=== PATIENT | male | born 1940 | race Caucasian/White ===

== ENCOUNTER 2016-06-22 13:18 | Inpatient (IN) | payer MEDICARE, BC ==
[2016-06-22 13:47] LABS: Hematocrit 31 % (42-52); Hemoglobin 9.8 g/dl (14.0-18.0); Mean Corpuscular HGB Conc 32 g/dl (31-36); Mean Corpuscular Hemoglobin 26 pg (27-31); Mean Corpuscular Volume 82 fL (80-94); Mean Platelet Volume 8 um3 (7.4-10.4); Red Blood Count 3.73 10^6/ul (4.0-5.4); Red Cell Distribution Width 24 % (10.5-15); White Blood Count 8.6 10^3/ul (3.5-10.8)
[2016-06-22 13:49] LABS: Comments Flag Yes
[2016-06-22 13:50] LABS: Add Diff/Slide Review? Slide Review Added
[2016-06-22 14:03] LABS: Albumin 3.2 g/dL (3.2-5.2); BUN/Creatinine Ratio 20.8 (8-20); Calcium 8.7 mg/dL (8.6-10.3); EGFR African American 54.6 (>60); EGFR Non-African American 42.4 (>60); Globulin 3.4 g/dL (2-4); Potassium 4.4 mmol/L (3.5-5.0); Total Bilirubin 0.4 mg/dL (0.2-1.0); Total Protein 6.6 g/dL (6.4-8.9)
[2016-06-22 14:04] LABS: Troponin I 0.03 ng/mL (<0.04)
--- NOTE | 2016-06-22 14:11 | RAD ---
Indication: Weakness. Single frontal view of the chest performed at 1345 hours was reviewed. Comparison is made with previous exam dated January 13, 2016. Cardiomegaly is noted. Patient is status post tracer thoracotomy. Lung downey appear hyperinflated. IMPRESSION: POSTOPERATIVE CHANGES WITH CARDIOMEGALY. NO DEFINITE PNEUMONIA IS IDENTIFIED.
--- NOTE | 2016-06-22 14:18 | RAD ---
HISTORY: New right-sided weakness COMPARISONS: January 13, 2016 TECHNIQUE: Multiple contiguous axial CT scans were obtained of the head without intravenous contrast. FINDINGS: HEMORRHAGE/INFARCT: There is a left frontoparietal subdural hematoma further described below. There is no parenchymal hemorrhage. There is no acute infarct. MASSES/SHIFT: There is 0.9 cm of subfalcine shift to the right. The basal cisterns are preserved. There is no parenchymal mass. EXTRA-AXIAL SPACES: There is a mixed attenuation (parietal subdural hematoma, consistent with subacute subdural hematoma. This measures up to 3.6 cm in depth. There is associated subfalcine shift to the right of 0.9 cm. SULCI AND VENTRICLES: The sulci and ventricles are normal in size and position for the patient's stated age. CEREBRUM: There is hypoattenuation of the periventricular and subcortical white matter. BRAINSTEM: There are no focal parenchymal abnormalities. CEREBELLUM: There are no focal parenchymal abnormalities. VESSELS: There is calcification of the cavernous segments of the internal carotid arteries bilaterally and of the distal vertebral arteries bilaterally. PARANASAL SINUSES: The paranasal sinuses are clear. ORBITS: The orbits are unremarkable. BONES AND SOFT TISSUE: No bone or soft tissue abnormalities are noted. OTHER: None IMPRESSION: SUBACUTE LEFT FRONTOPARIETAL SUBDURAL HEMATOMA MEASURING UP TO 3.6 CM IN DEPTH WITH A 0.9 CM OF SUBFALCINE SHIFT TO THE RIGHT. PRELIMINARY FINDINGS WERE DISCUSSED WITH DR. ROBLEDO IN THE EMERGENCY DEPARTMENT AT APPROXIMATELY 2:14 PM ON JUNE 22, 2016.
--- NOTE | 2016-06-22 15:38 | ED ---
Isaac Ivory Alok, scribed for Coreen Cross MD on 06/22/16 at 1359 . Neurological HPI - HPI Summary HPI Summary: 76 y/o male with dementia presents to the ED following a fall and right sided weakness. Pt was found on the floor 5 day ago after which he was checked for injury with no abnormal symptoms. Then 3 days ago, right sided unilateral weakness was noticed by his spouse. Pt's spouse remarks that pt mental state was worse than baseline, speaking softer with less attention. PMHx includes dementia, DM, HTN and HLD. - History of Current Complaint Chief Complaint: EDWeakness Stated Complaint: RT SIDE WEAKNESS Time Seen by Provider: 06/22/16 13:34 Hx Obtained From: Family/Retail Service Lead Merchandiser - Spouse Hx From Patient Unobtainable Due To: Dementia Onset/Duration: Gradual Onset, Started days ago Timing: Constant Onset Severity: Moderate Current Severity: Moderate Neurological Deficit Location: RUE, RLE Pain Intensity: 0 Character: Weak Aggravating: Nothing Alleviating: Nothing Associated Signs and Symptoms: Positive: AMS - Slightly worse than baseline Related Hx: Trauma - Fall 5 day ago - Allergy/Home Medications Allergies/Adverse Reactions: Allergies Allergy/AdvReac Type Severity Reaction Status Date / Time Penicillins Allergy Unknown Verified 04/21/15 01:21 Reaction Details Home Medications: Home Medications Acetaminophen SUPP* [Tylenol Supp*] 325 mg [place] Q4H PRN 06/22/16 [History Confirmed 06/22/16] Ascorbic Acid TAB* [Vitamin C TAB*] 500 mg PO DAILY 06/22/16 [History Confirmed 06/22/16] Cholecalciferol [Vitamin D3 Super Strength] 2,000 unit PO DAILY 06/22/16 [ History Confirmed 06/22/16] Ferrous Sulfate TAB* 325 mg PO DAILY 06/22/16 [History Confirmed 06/22/16] Insulin GLARGINE(*) [Lantus(*)] 56 units SUBCUT QAM 06/22/16 [History Confirmed 06/22/16] Insulin LISPRO* [HumaLOG*] 4 unit SUBCUT BID WITH MEALS 06/22/16 [History Confirmed 06/22/16] Insulin LISPRO* [HumaLOG*] 6 unit SUBCUT DAILY WITH MEAL 06/22/16 [History Confirmed 06/22/16] Magnesium Oxide TAB* [MagOx 400 TAB*] 400 mg PO DAILY 06/22/16 [History Confirmed 06/22/16] Omeprazole CAP* [Prilosec CAP* 20 MG] 40 mg PO DAILY 06/22/16 [History Confirmed 06/22/16] Ondansetron TAB* [Zofran 4 MG Tab*] 4 mg PO TID PRN 06/22/16 [History Confirmed 06/22/16] PMH/Surg Hx/FS Hx/Imm Hx Endocrine/Hematology History: Reports: Hx Diabetes Cardiovascular History: Reports: Hx Coronary Artery Disease GI History: Reports: Hx Gastroesophageal Reflux Disease Neurological History: Reports: Hx Dementia Infectious Disease History: No Infectious Disease History: Denies: Traveled Outside the [place] in Last 30 Days - Family History Known Family History: Positive: Unknown - Not obtained, since patient is a poor historian and hx of dementia, Other - reviewed and non contributory - Social History Alcohol Use: None Substance Use Type: Reports: None Smoking Status (MU): Never Smoked Tobacco Review of Systems Positive: Weakness - Right sided unilateral All Other Systems Reviewed And Are Negative: Yes Physical Exam Triage Information Reviewed: Yes Vital Signs On Initial Exam: Initial Vitals Pulse Pulse Ox 77 99 06/22/16 13:27 06/22/16 13:27 Vital Signs Reviewed: Yes Appearance: Positive: Well-Appearing, No Pain Distress Skin: Positive: Warm, Skin Color Reflects Adequate Perfusion, Dry Eyes: Positive: HECTOR, Other: - Pupils 2 mm ENT: Positive: Pharynx normal, TMs normal Neck: Positive: Supple, Nontender Respiratory/Lung Sounds: Positive: Clear to Auscultation. Negative: Rales, Rhonchi, Wheezes Cardiovascular: Positive: RRR. Negative: Murmur, Rub, Other - Gallops Abdomen Description: Positive: Nontender, Soft Bowel Sounds: Positive: Present Musculoskeletal: Positive: Other - Right leg and Right arm only responsive to painful stimuli Psychiatric: Positive: Affect/Mood Appropriate Diagnostics - Vital Signs Vital Signs Temp Pulse Resp BP Pulse Ox 06/22/16 13:28 99.4 F 78 16 173/70 99 06/22/16 13:27 77 99 - Laboratory Lab Results: Lab Results 06/22/16 Range/Units 13:40 WBC 8.6 (3.5-10.8) 10^3/ul RBC 3.73 L (4.0-5.4) 10^6/ul Hgb 9.8 L (14.0-18.0) g/dl Hct 31 L (42-52) % MCV 82 (80-94) fL MCH 26 L (27-31) pg MCHC 32 (31-36) g/dl RDW 24 H (10.5-15) % Plt Count 265 (150-450) 10^3/ul MPV 8 (7.4-10.4) um3 Neut % (Auto) 84.0 H (38-83) % Lymph % (Auto) 6.1 L (25-47) % [place] % (Auto) 8.7 (1-9) % Eos % (Auto) 0.4 (0-6) % Baso % (Auto) 0.8 (0-2) % Absolute Neuts (auto) 7.2 (1.5-7.7) 10^3/ul Absolute Lymphs (auto) 0.5 L (1.0-4.8) 10^3/ul Absolute Monos (auto) 0.7 (0-0.8) 10^3/ul Absolute Eos (auto) 0 (0-0.6) 10^3/ul Absolute Basos (auto) 0.1 (0-0.2) 10^3/ul Absolute Nucleated RBC 0 10^3/ul Nucleated RBC % 0 Result Diagrams: 06/22/16 13:40 06/22/16 13:40 Lab Statement: Any lab studies that have been ordered have been reviewed, and results considered in the medical decision making process. - Radiology CXR Xray Interpretation: Positive (See Comments) - IMPRESSION: POSTOPERATIVE CHANGES WITH CARDIOMEGALY. NO DEFINITE PNEUMONIA IS IDENTIFIED. Radiology Interpretation Completed By: Radiologist - CT Brain CT CT Interpretation: Positive (See Comments) - IMPRESSION: SUBACUTE LEFT FRONTOPARIETAL SUBDURAL HEMATOMA MEASURING UP TO 3.6 CM IN DEPTH WITH A 0.9 CM OF SUBFALCINE SHIFT TO THE RIGHT. PRELIMINARY FINDINGS WERE DISCUSSED WITH DR. CROSS IN THE EMERGENCY DEPARTMENT AT APPROXIMATELY 2:14 PM ON JUNE 22, 2016. CT Interpretation Completed By: Radiologist - EKG 1342 Cardiac Rate: NL EKG Rhythm: Sinus Rhythm - 75 bpm EKG Interpretation: Non-specific T-wave changes. Inferior Q's Course/Dx - Course Course Of Treatment: pt admitted to neurosurgery after discussion with PA - Diagnoses Provider Diagnoses: Subdural hematoma - Physician Notifications Discussed Care of Patient With: Dr. Dahl @ 0090 Discharge - Discharge Plan Condition: Guarded Disposition: ADMITTED TO [facility] documentation as recorded by the Isaac woodard Alok accurately reflects the service I personally performed and the decisions made by me, Coreen Cross MD.
--- NOTE | 2016-06-22 16:14 | HP ---
H&P (Free Text) History and Physical: History and Physical Date: 06/22/16 HPI: This is a 76 year old male with past medical history significant for diabetes, CAD and dementia who presented to the [facility] ED this afternoon from his place of residence at [facility] with complaint of right sided upper and lower extremity weakness. His gives all of the history as he is unable to communicate history secondary to dementia and current mentation. She reports that he fell about 4 days ago at [facility]. He was check at the time of fall for injuries and was reported to not have sustained any injuries including to the head. He was speaking clearly and at baseline on the day of fall per the . She again went to visit him today and reports that he was slouched to the right side in the chair and was unable to move his right side. She suspected that this was not normal and requested that he be evaluated at the emergency room. He was taken to [facility] ER, CT brain was obtained and he was found to have a large left sided subacute subdural hematoma. The patient's also reports that his speech is much softer than usual and is unable to answer questions as well as baseline. The patient denies headache, chest pain, pain in the upper extremities, nausea and difficulty breathing. He is able to follow commands. Allergies: 1. Penicillins Home medications: 1. Aspirin Low Dose CHEW TAB* [Aspirin Low Dose TAB*] 81 mg PO DAILY 05/31/14 [ History Confirmed 06/22/16] 2. Acetaminophen [Acetaminophen Extra Stren] 1,000 mg PO Q8HR PRN 08/15/15 [ History Confirmed 06/22/16] 3. Acetaminophen SUPP* [Tylenol Supp*] 325 mg [place] Q4H PRN 06/22/16 [History Confirmed 06/22/16] 4. Ascorbic Acid TAB* [Vitamin C TAB*] 500 mg PO DAILY 06/22/16 [History Confirmed 06/22/16] 5. Cholecalciferol [Vitamin D3 Super Strength] 2,000 unit PO DAILY 06/22/16 [ History Confirmed 06/22/16] 6. Ferrous Sulfate TAB* 325 mg PO DAILY 06/22/16 [History Confirmed 06/22/16] 7. Insulin GLARGINE(*) [Lantus(*)] 56 units SUBCUT QAM 06/22/16 [History Confirmed 06/22/16] 8. Insulin LISPRO* [HumaLOG*] 4 unit SUBCUT BID WITH MEALS 06/22/16 [History Confirmed 06/22/16] 9. Insulin LISPRO* [HumaLOG*] 6 unit SUBCUT DAILY WITH MEAL 06/22/16 [History Confirmed 06/22/16] 10. Magnesium Oxide TAB* [MagOx 400 TAB*] 400 mg PO DAILY 06/22/16 [History Confirmed 06/22/16] 11. Omeprazole CAP* [Prilosec CAP* 20 MG] 40 mg PO DAILY 06/22/16 [History Confirmed 06/22/16] 12. Ondansetron TAB* [Zofran 4 MG Tab*] 4 mg PO TID PRN 06/22/16 [History Confirmed 06/22/16] Social history: The patient lives at [facility]. No alcohol or tobacco use. ROS: Pertinent findings stated in HPI, all others negative. Physical Exam: Vital Signs Temp Pulse Resp BP Pulse Ox 99.4 F 79 11 173/70 99 06/22/16 13:28 06/22/16 14:05 06/22/16 14:05 06/22/16 13:30 06/22/16 14:05 General: Laying in bed. Able to follow commands. Not able to verbalize answers well. HEENT: Head is normocephalic and atraumatic. Sclerae anicteric. Pupils 2mm and reactive. Gross hearing intact. Dry mucous membranes. Neck: Supple, nontender and without adenopathy. CV: Pedal and radial pulses palpable and equal. Lungs: Clear to auscultation. Breathing is nonlabored. Abdomen: Soft, nontender and nondistended. NABS. Neuro: Right upper extremity weakness 2/5. Right lower extremity weakness 3/5. Imaging: CT of the brain shows left subacute subdural hematoma. Assessment and Plan: This patient presents with significant right sided weakness with subacute SDH on CT after a recent fall. Recent decline in speech and strength in the presence of large SDH indicates need for urgent александр hole evacuation of SDH.
[2016-06-22] MEDS ORDERED: fentaNYL* 50 MCG/ML 5 ML VIAL (250 MCG VIAL) ONE (16:29)
[2016-06-22] MEDS ORDERED: Rocuronium* 10 MG/ML VIAL ONE ×2 (16:29→16:34)
[2016-06-22] MEDS ORDERED: Thrombin 5,000 UNITS* 1 APPLIC KIT - topical use - TOPICAL ONE (16:29)
[2016-06-22] MEDS ORDERED: Ondansetron INJ* 2 MG/ML VIAL ONE (16:30)
[2016-06-22] MEDS ORDERED: Dexamethasone IV* 4 MG/ML 1 ML (4 MG) ONE ×2 (16:30→16:57)
[2016-06-22] MEDS ORDERED: Propofol* 10 MG/ML 20 ML BTL IV PUSH ONE (16:30)
[2016-06-22] MEDS ORDERED: Lidocain 1% EPI 1:100,000 * 30 ML MDV ONE (16:30)
[2016-06-22] MEDS ORDERED: EPHEDrine (Pressors)* 50 MG/ML VIAL ONE (16:33)
[2016-06-22] MEDS ORDERED: Lidocaine 2% PF* 5 ML VIAL ONE (16:35)
[2016-06-22] MEDS ORDERED: Clindamycin 900 MG IVPREMIX(* 900 MG/50 ML SDV IV ONE (16:45)
[2016-06-22] MEDS ORDERED: Insulin REGULAR(*) 1 UNITS UNIT ONE (16:52)
[2016-06-22] MEDS ORDERED: Metoclopramide IV* 5 MG/ML 2 ML VIAL IV SLOW PU ONE (16:54)
[2016-06-22] MEDS ORDERED: Buffered Lidocaine 1% SYRIN* 3 ML/SYR SYRINGE INTRADERM ONE (16:54)
[2016-06-22] MEDS ORDERED: Sodium Citrate/Citric Acid* 15 ML UDC PO ONE (16:54)
[2016-06-22] MEDS ORDERED: Metoclopramide IV* 5 MG/ML 2 ML VIAL ONE (16:54)
[2016-06-22] MEDS ORDERED: Famotidine IV* 10 MG/ML 2 ML (20 mg) IV ONE (16:54)
[2016-06-22] MEDS ORDERED: Dexamethasone IV* 4 MG/ML 1 ML (4 MG) IV SLOW PU ONE (16:54)
[2016-06-22] MEDS ORDERED: Insulin REGULAR(*) 1 UNITS UNIT IV PUSH ONE (16:56)
[2016-06-22] MEDS ORDERED: Famotidine IV* 10 MG/ML 2 ML (20 mg) ONE (16:57)
[2016-06-22] MEDS ORDERED: Sodium Citrate/Citric Acid* 15 ML UDC ONE (16:57)
[2016-06-22] MEDS ORDERED: Succinylcholine* 20 MG/ML 10 ML VIAL ONE (17:02)
[2016-06-22] MEDS ORDERED: Atracurium* 10 MG/ML 10 ML VIAL ONE (17:02)
[2016-06-22] MEDS ORDERED: Phenylephrine IV* 40 MCG/ML 10 ML SYRINGE ONE (17:54)
[2016-06-22] MEDS ORDERED: Acetaminophen TAB* 325 MG PO PRN (17:57)
[2016-06-22] MEDS ORDERED: Ondansetron INJ* 2 MG/ML VIAL IV PRN (17:57)
[2016-06-22] MEDS ORDERED: Labetalol IV* 5 MG/ML 20 ML VIAL IV PUSH PRN (18:05)
[2016-06-22] MEDS ORDERED: Morphine INJ* 2 MG/ML 1 ML SYRINGE IV PRN (18:19)
[2016-06-22] MEDS ORDERED: Edrophonium Chloride* 10 MG/ML 15 ML VIAL ONE (18:24)
[2016-06-22] MEDS ORDERED: Glycopyrrolate IV* 0.2 MG/ML 1 ML VIAL ONE (18:24)
[2016-06-22] MEDS ORDERED: Phenytoin IV(*) 1,000 MG in NS 0.9% 250 ML* 250 ML IV ONE (19:00)
[2016-06-22] MEDS: Insulin GLARGINE(*) 1 UNITS UNIT SUBCUT SCH (21:41)
[2016-06-22] MEDS: Insulin LISPRO* 1 UNITS UNIT SUBCUT SCH (21:41)
--- NOTE | 2016-06-23 01:27 | CONS ---
CONSULTATION REPORT: DATE OF CONSULTATION: 06/22/16 - ROOM #ICU-09 PRIMARY CARE PROVIDER: Dr. Muñoz. SERVICE REQUESTING CONSULTATION: Neurosurgery. REASON FOR CONSULTATION: Uncontrolled type 2 diabetes. HISTORY OF PRESENT ILLNESS AND HOSPITAL COURSE: This is a 76-year-old man with past medical history significant for insulin dependent type 2 diabetes mellitus , CAD with single vessel bypass 2011, advanced dementia, who has been a resident for [facility] for the last year. He had a fall approximately 4 or 5 days prior to presentation. slightly slurred speech and be slumping towards right side with right upper and lower extremity weakness. He presented to [facility] where brain CAT scan was notable for subacute left frontoparietal subdural hematoma with 0.9 cm subfalcine shift to the right. The patient was brought to the operating room, underwent 2 александр holes for decompression. The patient was seen by this author in the PACU after the procedure with his at the bedside. Per her report at his baseline, he can sometimes say her name. However, mostly is A and O x0. She notes he still has a sense of humor. PAST MEDICAL HISTORY: Include CAD, status post single vessel CABG in 2000; advanced dementia; insulin dependent type 2 diabetes; GERD; past history of bradycardia in previous admissions; total prostatectomy for prostate cancer in 2000; and cholecystectomy. HOME MEDICATIONS: Reviewed from admitting services reconciliation; however, cannot confirm its accuracy, include: 1. Aspirin 81 mg daily. 2. Tylenol 1000 mg 3 times a day as needed. 3. Ascorbic acid 500 mg daily. 4. Vitamin D3 2000 units daily. 5. Ferrous sulfate 325 mg daily. 6. Insulin Glargine 56 units in the morning. 7. Insulin lispro 4 units twice daily with meals in addition to 6 units with meals for a total of 10 units daily with meals. 8. Magnesium oxide 400 mg daily. 9. Omeprazole 40 mg daily. 10. Ondansetron 4 mg daily. ALLERGIES: To PENICILLINS. FAMILY HISTORY: Significant for mother from cirrhosis secondary to alcohol disease. 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 Past alcohol none currently. No tobacco. Was previously at [facility] until moved to [facility] approximately 1 year prior. REVIEW OF SYSTEMS: Unable to obtain secondary to dementia and depressed level of consciousness. PHYSICAL EXAMINATION: GENERAL: Elderly man, lying flat in bed, does not wake to name or light touch. VITAL SIGNS: When seen by this author, 156/75, hear rate 73, respiratory rate was 9, 100% on 4 L, T-max in the hospital 99.4. HEENT : His oropharynx is clear. He has dry mucous membranes. Sclerae are anicteric. He has regular rate and rhythm. LUNGS: Scant wheeze throughout. ABDOMEN: Soft, nontender, nondistended. EXTREMITIES: Warm and well perfused without clubbing, cyanosis or edema. NEUROLOGIC: He is a A and O x0. His pupils are equal, round and reactive to light. DIAGNOSTIC STUDIES/LABORATORY DATA: Laboratory data reviewed. BUN 33, creatinine 1.59. His baseline compared to previous labs. Glucose 355 on presentation. Hemoglobin 9.8, approximates his baseline. White blood cell count 8.6, platelets 265. IMPRESSION: This is a 76-year-old man with past medical history of coronary artery disease, advanced dementia, insulin-dependent type 2 diabetes mellitus presenting with subdural hematoma, status post 2 александр holes. 1. Subdural hematoma. Care per surgical service will be NICU for continued monitoring overnight. 2. Insulin dependent type 2 diabetes mellitus. Unclear what his home does is. His thinks he takes Lantus twice daily. Medication reconciliation indicates 56 units daily. We will start quite low with insulin Lantus 10 units while n.p.o. with low dose sliding scale to increase tomorrow based on need. Fingersticks a.c. and h.s. starting tomorrow. 3. Coronary artery disease. Holding antiplatelets. 4. Advanced dementia, on no medications, stable. 5. DVTs prophylaxis. SCDs. We will continue to follow you. Please do not hesitate to call with additional questions. CC: Dr. Muñoz* [id number]/CPS #: [id number] LIZANDRO
[2016-06-23 06:23] LABS: Hematocrit 26 % (42-52); Hemoglobin 8.6 g/dl (14.0-18.0); Mean Corpuscular HGB Conc 33 g/dl (31-36); Mean Corpuscular Hemoglobin 26 pg (27-31); Mean Corpuscular Volume 81 fL (80-94); Mean Platelet Volume 8 um3 (7.4-10.4); Red Blood Count 3.26 10^6/ul (4.0-5.4); White Blood Count 10.9 10^3/ul (3.5-10.8)
[2016-06-23 06:26] LABS: Comments Flag Yes
[2016-06-23 06:27] LABS: Red Cell Distribution Width 23 % (10.5-15)
[2016-06-23 06:37] LABS: BUN/Creatinine Ratio 21.4 (8-20); Calcium 8.4 mg/dL (8.6-10.3); EGFR African American 71.4 (>60); EGFR Non-African American 55.5 (>60); Potassium 4.4 mmol/L (3.5-5.0)
--- NOTE | 2016-06-23 08:00 | RAD ---
HISTORY: Postop subdural COMPARISONS: June 22, 2016 TECHNIQUE: Multiple contiguous axial CT scans were obtained of the head without intravenous contrast. FINDINGS: HEMORRHAGE/INFARCT: Again noted is a left frontoparietal subdural hematoma further described below. There is no parenchymal hemorrhage. There is loss of adams-white differentiation along the left frontal lobe. MASSES/SHIFT: There is approximately 0.6 cm of subfalcine shift to the right, decreased from the previous examination EXTRA-AXIAL SPACES: There is a left frontoparietal subdural hematoma. A subdural drain is noted. There is pneumocephalus. The fluid component has decreased compared to June 22, 2016. SULCI AND VENTRICLES: The sulci and ventricles are normal in size and position for the patient's stated age. CEREBRUM: As noted above, there is loss of adams-white differentiation along the left frontal lobe BRAINSTEM: There are no focal parenchymal abnormalities. CEREBELLUM: There are no focal parenchymal abnormalities. VESSELS: There is calcification of the cavernous segments of the internal carotid arteries bilaterally and of the distal vertebral arteries bilaterally. PARANASAL SINUSES: The paranasal sinuses are clear. ORBITS: The orbits are unremarkable. BONES AND SOFT TISSUE: There is post surgical change to the skull. There is subcutaneous emphysema. OTHER: None IMPRESSION: 1. INTERVAL PLACEMENT OF A LEFT FRONTOPARIETAL SUBDURAL DRAINAGE CATHETER WITH INTERVAL DECREASE IN THE FLUID COMPONENT OF THE SUBDURAL HEMATOMA. PNEUMOCEPHALUS IS NOTED. 2. THERE IS PERSISTENT BUT DECREASING SUBFALCINE SHIFT TO THE RIGHT. 3. THERE IS LOSS OF ADAMS-WHITE DIFFERENTIATION ALONG THE LEFT FRONTAL LOBE WHICH MAY REFLECT LOCAL EDEMA VERSUS SUBACUTE NONHEMORRHAGIC INFARCT. RECOMMEND ATTENTION ON FOLLOW-UP IMAGING
[2016-06-23] MEDS: Insulin LISPRO* 1 UNITS UNIT SUBCUT SCH ×5 (08:34→21:30)
[2016-06-23] MEDS: Omeprazole CAP* 20 MG PO SCH (08:35)
[2016-06-23] MEDS: Ferrous Sulfate TAB* 325 MG PO SCH (08:35)
[2016-06-23] MEDS: Ascorbic Acid TAB* 500 MG PO SCH (08:35)
[2016-06-23] MEDS: Magnesium Oxide TAB* 400 MG PO SCH (08:36)
[2016-06-23] MEDS ORDERED: Labetalol IV* 5 MG/ML 20 ML VIAL IV PUSH PRN ×2 (08:58→09:42)
--- NOTE | 2016-06-23 09:00 | CONSULT ---
Consult Consult: Consultation Note Critical Care Requesting Physician: Neurosurgical service - Dr Blue Reason for consult: subdural hematoma Limitations in history/physical: h/o dementia, not verbal Date of consult: 06/23/2016 HPI: 76y M w/pmhx DM, CAD, GERD, Dementia, HTN, HLD; who was brought in by because of right sided weakness for 3 days. Patient noted to have a fall ~3 or 4 days back, no injury/wound, no symptoms after the fall. Then 1 day after he developed right sided weakness, change in mental status, slowed speech over the days. CT head in ER demonstrated 3.5cm left subacute frontoparietal subdural hematoma with mild 0.9cm midline shift. He is not on antiplatelet agents or anticoagulants. Patient was taken to the OR and is s/p craniotomy/ evacuation of blood clot. He is awake, alert, follows commands but not verbal. Drain is in place. ROS: limited due to dementia;mental status. PMHx: DM, CAD, GERD, Dementia, HTN, HLD PSHx: none Family History: unknown, limited history from patient Social History: Alcohol-none, Smoking-none, Drug use-none Allergies: PCN Home Medications: acetaminophen, ascorbic acid, vitamin d3 supplement, ferrous sulfate, insulin glargine, insulin lispro, mag oxide po, omeprazole 20mg daily, odansetron 4mg po Tele: NSR Vitals: Vital Signs Temp 98.9 F 06/23/16 07:36 Pulse 66 06/23/16 08:30 Resp 16 06/23/16 08:30 BP 137/68 06/23/16 08:30 Pulse Ox 100 06/23/16 08:30 Intake & Output 06/22/16 06/23/16 06/23/16 18:59 06:59 18:59 Intake Total 900 775 Output Total 402 Balance 900 373 Weight 160 lb 168 lb 13.985 oz Intake: IV Fluids 900 775 LR 900 775 Oral 0 Output: Cranial Drain 127 Urine 275 Other: Estimated Void Large Estimated Stool Amount Small # Voids 1 O2/Vent: NC Infusions: LR 75cc/hour Current Medications: Acetaminophen (Tylenol Tab*) 650 mg PO Q4H PRN PRN Reason: PAIN Ascorbic Acid (Vitamin C Tab*) 500 mg PO DAILY [facility] Last Admin: 06/23/16 08:35 Dose: Not Given Ferrous Sulfate (Ferrous Sulfate Tab*) [address] [facility] Last Admin: 06/23/16 08:35 Dose: Not Given Lactated Ringer's (Lactated Ringers 1000 Ml Bag*) 1,000 mls @ 75 mls/hr IV .per rate [facility] Last Admin: 06/22/16 21:34 Dose: 75 mls/hr Phenytoin Sodium 100 mg/ (Sodium Chloride) 102 mls @ 408 mls/hr IVPB Q8H [facility] Last Admin: 06/23/16 03:06 Dose: 408 mls/hr Insulin Glargine (Lantus(*)) [address] [facility] Last Admin: 06/22/16 21:41 Dose: 10 units Insulin Human Lispro (Humalog*) [address] [facility] PRN Reason: Protocol Last Admin: 06/23/16 08:34 Dose: 2 unit Labetalol HCl (Trandate Iv*) 20 mg IV PUSH Q4H PRN PRN Reason: BLOOD PRESSURE Magnesium Oxide (Magox 400 Tab*) [address] [facility] Last Admin: 06/23/16 08:36 Dose: Not Given Morphine Sulfate (Morphine Inj (Syringe)*) 2 mg IV Q3H PRN PRN Reason: PAIN Omeprazole (Prilosec Cap*) 40 mg PO DAILY@0730 [facility] Last Admin: 06/23/16 08:35 Dose: Not Given Ondansetron HCl (Zofran Inj*) 4 mg IV Q6H PRN PRN Reason: NAUSEA/VOMITING Physical Exam: General: awake, alert, no distress, no diaphoresis Head: left frontoparietal craniotomy site with dressing, cathetor in place HEENT: no pallor, no icterus, moist mucous membranes Neck: no stridor, no jvd CVS: normal rate, normal rhythm, no murmur Resp: bilateral air entry, no rhales, no wheeze, no rhonchi, no acc muscle use Abdomen: soft, nontender, nondistended, bowel sounds present Ext: pulses+, warm, no edema Skin: intact, no breakdown, no dryness Neuro: awake, alert, not much verbal, follows commands, moves right side, strength RUE and RLE appears to be 4/5 Labs: Laboratory Results - last 24 hr 06/22/16 06/22/16 06/22/16 13:40 13:40 13:40 WBC 8.6 RBC 3.73 L Hgb 9.8 L Hct 31 L MCV 82 MCH 26 L MCHC 32 RDW 24 H Plt Count 265 MPV 8 Neut % (Auto) 84.0 H Lymph % (Auto) 6.1 L [place] % (Auto) 8.7 Eos % (Auto) 0.4 Baso % (Auto) 0.8 Absolute Neuts (auto) 7.2 Absolute Lymphs (auto) 0.5 L Absolute Monos (auto) 0.7 Absolute Eos (auto) 0 Absolute Basos (auto) 0.1 Absolute Nucleated RBC 0 Nucleated RBC % 0 INR (Anticoag Therapy) 1.16 H APTT 28.2 Sodium 135 Potassium 4.4 Chloride 104 Carbon Dioxide 25 Anion Gap 6 BUN 33 H Creatinine 1.59 H Est GFR ( Amer) 54.6 Est GFR (Non-Af Amer) 42.4 BUN/Creatinine Ratio 20.8 H Glucose 355 H POC Glucose (mg/dL) Hemoglobin A1c Lactic Acid Calcium 8.7 Total Bilirubin 0.40 AST 17 ALT 9 Alkaline Phosphatase 73 Troponin I 0.03 Total Protein 6.6 Albumin 3.2 Globulin 3.4 Albumin/Globulin Ratio 0.9 L 06/22/16 06/22/16 06/22/16 13:40 13:40 18:27 WBC RBC Hgb Hct MCV MCH MCHC RDW Plt Count MPV Neut % (Auto) Lymph % (Auto) [place] % (Auto) Eos % (Auto) Baso % (Auto) Absolute Neuts (auto) Absolute Lymphs (auto) Absolute Monos (auto) Absolute Eos (auto) Absolute Basos (auto) Absolute Nucleated RBC Nucleated RBC % INR (Anticoag Therapy) APTT Sodium Potassium Chloride Carbon Dioxide Anion Gap BUN Creatinine Est GFR ( Amer) Est GFR (Non-Af Amer) BUN/Creatinine Ratio Glucose POC Glucose (mg/dL) 184 H Hemoglobin A1c 8.8 H Lactic Acid 2.0 Calcium Total Bilirubin AST ALT Alkaline Phosphatase Troponin I Total Protein Albumin Globulin Albumin/Globulin Ratio 06/22/16 06/22/16 06/23/16 21:26 21:45 05:55 WBC RBC Hgb Hct MCV MCH MCHC RDW Plt Count MPV Neut % (Auto) Lymph % (Auto) [place] % (Auto) Eos % (Auto) Baso % (Auto) Absolute Neuts (auto) Absolute Lymphs (auto) Absolute Monos (auto) Absolute Eos (auto) Absolute Basos (auto) Absolute Nucleated RBC Nucleated RBC % INR (Anticoag Therapy) APTT Sodium 137 Potassium 4.4 Chloride 106 Carbon Dioxide 24 Anion Gap 7 BUN 27 H Creatinine 1.26 H Est GFR ( Amer) 71.4 Est GFR (Non-Af Amer) 55.5 BUN/Creatinine Ratio 21.4 H Glucose 210 H POC Glucose (mg/dL) 189 H Hemoglobin A1c Lactic Acid 1.0 Calcium 8.4 L Total Bilirubin AST ALT Alkaline Phosphatase Troponin I Total Protein Albumin Globulin Albumin/Globulin Ratio 06/23/16 06/23/16 05:55 08:27 WBC 10.9 H RBC 3.26 L Hgb 8.6 L Hct 26 L MCV 81 MCH 26 L MCHC 33 RDW 23 H Plt Count 232 MPV 8 Neut % (Auto) 88.1 H Lymph % (Auto) 5.4 L [place] % (Auto) 6.4 Eos % (Auto) 0 Baso % (Auto) 0.1 Absolute Neuts (auto) 9.6 H Absolute Lymphs (auto) 0.6 L Absolute Monos (auto) 0.7 Absolute Eos (auto) 0 Absolute Basos (auto) 0 Absolute Nucleated RBC 0 Nucleated RBC % 0 INR (Anticoag Therapy) APTT Sodium Potassium Chloride Carbon Dioxide Anion Gap BUN Creatinine Est GFR ( Amer) Est GFR (Non-Af Amer) BUN/Creatinine Ratio Glucose POC Glucose (mg/dL) 236 H Hemoglobin A1c Lactic Acid Calcium Total Bilirubin AST ALT Alkaline Phosphatase Troponin I Total Protein Albumin Globulin Albumin/Globulin Ratio Imaging: CT head 06/22 - reviewed, large left frontoparietal subacute subdural hematoma with 0.9cm left-right subfalcine midline shift. CT head 06/23 AM - s/p evac of left subdural collection, drain in place, slight improvement in left->right shift, pneumocephelus post op; left frontal looney- white diff is dec which may be edema +/- infarct. Assessment: 76y M w/pmhx DM, CAD, GERD, Dementia, HTN, HLD; comes in 4 days after a fall, found to have right sided weakness and sluggish speech and left frontoparietal subacute subdural hematoma. He is now s/p craniotomy/evacuation of blood clot. -Traumatic Subacute subdural hematoma s/p craniotomy/evacuation 06/22 - POD#1 -Left MCA syndrome - right sided weakness; improving -Hypertension -Dementia -ROBERT, likely pre-renal azotemia -Diabetes Mellitus Plan: Neuro- neuro checks, wound checks for bleeding; monitor drain output, Repeat CT head reviewed, improvement noted; asp prec, fall prec. No anticoagulation/ antiplatelet agents. Mild pain control prn. Seizure prophylaxis with Dilantin IV 100mg tid. BP control, keep <160 as per NS, prn labetalol. Nicardipine an option is remains high. Clinically improved, moving right side and strength appears better, baseline nonverbal? does follow commands when asked of. CVS- maintain passive hypertension, labetalol IV prn to keep SBP <160. Monitor for further bleeding. Not on antiplatelets/anticoagulation. h/o CAD. Resp- on NC, no resp distress noted. ID- afebrile, wbc 10.9; periop clindamycin given; no abx indicated now GI- antiemetics. NPO for now. PPI. Obtain speech/swallow eval. Renal- ROBERT, improving with LR infusion. Cont 75cc/hour. Heme- monitor for bleeding; no AC/antiplatelets. Monitor subdural drain outputs. Endo- on sq insulin now, check fingersticks q4h with coverage. Keep BS <200 goal. Musculsk- bedrest for now. PT/OT. Wounds- wound check to craniotomy site Nutrition- NPO now. Speech/swallow eval, then start nutrition. DVT prophylaxis: SCDs GI prophylaxis: omeprazole Central Line: none Arterial Line: none [place] Cathetor: none Disposition:ICU post craniotomy/evacuation for subacute SDH. Code Status: DNR/DNI Total Critical Care time is 50 minutes, excluding procedures/teaching Stuart Pearce MD [employer] (Electronically Signed)
--- NOTE | 2016-06-23 09:04 | PN ---
Progress Note - Progress Note SOAP: Subjective: [This is a 76 year old male s/p left александр hole x2 for subacute subdural hematoma evacuation, POD#1. His speech is improved today; answers questions clearly, coherently and appropriately with 1-2 word answers. He is moving all extremities independently. He denies headache and pain elsewhere.] Objective: [ Vital Signs: Temp Pulse Resp BP Pulse Ox 98.9 F 66 16 137/68 100 06/23/16 07:36 06/23/16 08:30 06/23/16 08:30 06/23/16 08:30 06/23/16 08:30 General: Seems tired, falling asleep after answering questions. Oriented to person. No distress. Head: Incisions to the left head intact with sade. Drain in place and functioning. No swelling or sign of infection. Neuro: Right upper and lower extremity weakness improving; upper extremity strength 3/5 and lower extremity 4/5. ] Assessment: [Stable post-op. Drain pulled back 2 cm this morning and flushed distally.] Plan: [1. Continue to monitor neuro. 2. Continue pain management PRN.]
--- NOTE | 2016-06-23 09:44 | PN ---
Subjective Date of Service: 06/23/16 Interval History: Seen and examined. Discussed care with RN and NS Movement has been increasing Falls asleep mid exam Cannot sit up s/p procedure so remains NPO Objective Active Medications: Acetaminophen (Tylenol Tab*) 650 mg PO Q4H PRN PRN Reason: PAIN Ascorbic Acid (Vitamin C Tab*) 500 mg PO DAILY [facility] Last Admin: 06/23/16 08:35 Dose: Not Given Ferrous Sulfate (Ferrous Sulfate Tab*) 325 mg PO DAILY [facility] Last Admin: 06/23/16 08:35 Dose: Not Given Lactated Ringer's (Lactated Ringers 1000 Ml Bag*) 1,000 mls @ 75 mls/hr IV .per rate [facility] Last Admin: 06/22/16 21:34 Dose: 75 mls/hr Phenytoin Sodium 100 mg/ (Sodium Chloride) 102 mls @ 408 mls/hr IVPB Q8H [facility] Last Admin: 06/23/16 03:06 Dose: 408 mls/hr Insulin Glargine (Lantus(*)) 10 units SUBCUT BEDTIME [facility] Last Admin: 06/22/16 21:41 Dose: 10 units Labetalol HCl (Trandate Iv*) 20 mg IV PUSH Q4H PRN PRN Reason: BLOOD PRESSURE Magnesium Oxide (Magox 400 Tab*) 400 mg PO DAILY [facility] Last Admin: 06/23/16 08:36 Dose: Not Given Morphine Sulfate (Morphine Inj (Syringe)*) 2 mg IV Q3H PRN PRN Reason: PAIN Omeprazole (Prilosec Cap*) 40 mg PO DAILY@0730 [facility] Last Admin: 06/23/16 08:35 Dose: Not Given Ondansetron HCl (Zofran Inj*) 4 mg IV Q6H PRN PRN Reason: NAUSEA/VOMITING Vital Signs 06/22/16 06/22/16 06/22/16 20:00 20:22 20:30 Temperature 98.6 F 98.6 F Pulse Rate 75 Respiratory 18 16 Rate Blood Pressure 161/67 (mmHg) O2 Sat by Pulse 98 Oximetry 06/22/16 06/22/16 06/22/16 20:50 20:55 21:00 Temperature Pulse Rate 68 73 76 Respiratory 16 15 18 Rate Blood Pressure 160/63 162/76 156/66 (mmHg) O2 Sat by Pulse 100 100 100 Oximetry 06/22/16 06/22/16 06/22/16 21:05 21:15 21:16 Temperature Pulse Rate 68 68 Respiratory 17 18 Rate Blood Pressure 158/77 149/63 (mmHg) O2 Sat by Pulse 97 100 100 Oximetry 06/22/16 06/22/16 06/22/16 21:20 21:25 21:30 Temperature Pulse Rate 64 72 70 Respiratory 15 18 13 Rate Blood Pressure 153/72 160/72 151/64 (mmHg) O2 Sat by Pulse 100 100 100 Oximetry 06/22/16 06/22/16 06/22/16 21:35 21:40 21:45 Temperature Pulse Rate 65 66 68 Respiratory 19 17 17 Rate Blood Pressure 147/64 147/73 161/67 (mmHg) O2 Sat by Pulse 100 100 100 Oximetry 06/22/16 06/22/16 06/22/16 21:50 22:00 22:05 Temperature Pulse Rate 75 65 71 Respiratory 17 16 18 Rate Blood Pressure 154/79 159/63 160/66 (mmHg) O2 Sat by Pulse 98 100 100 Oximetry 06/22/16 06/22/16 06/22/16 22:10 22:15 22:20 Temperature Pulse Rate 78 71 66 Respiratory 21 17 16 Rate Blood Pressure 164/66 153/66 147/64 (mmHg) O2 Sat by Pulse 98 100 100 Oximetry 06/22/16 06/22/16 06/22/16 22:25 22:30 22:35 Temperature Pulse Rate 65 63 69 Respiratory 14 19 10 Rate Blood Pressure 146/79 145/74 146/80 (mmHg) O2 Sat by Pulse 100 100 100 Oximetry 06/22/16 06/22/16 06/22/16 22:40 22:45 22:50 Temperature Pulse Rate 67 66 Respiratory 16 16 Rate Blood Pressure 152/68 157/93 (mmHg) O2 Sat by Pulse 100 100 Oximetry 06/22/16 06/22/16 06/22/16 23:00 23:12 23:23 Temperature Pulse Rate 70 80 Respiratory 16 8 19 Rate Blood Pressure 162/64 (mmHg) O2 Sat by Pulse 100 100 Oximetry 06/22/16 06/23/16 06/23/16 23:43 00:00 00:05 Temperature 99.5 F Pulse Rate 80 76 Respiratory 17 18 Rate Blood Pressure 175/76 (mmHg) O2 Sat by Pulse 100 100 Oximetry 06/23/16 06/23/16 06/23/16 00:30 01:00 01:20 Temperature Pulse Rate 69 76 Respiratory 19 19 17 Rate Blood Pressure 158/79 175/74 169/73 (mmHg) O2 Sat by Pulse 100 100 Oximetry 06/23/16 06/23/16 06/23/16 01:30 02:00 02:30 Temperature Pulse Rate 76 57 56 Respiratory 16 17 17 Rate Blood Pressure 176/75 138/67 137/58 (mmHg) O2 Sat by Pulse 100 97 95 Oximetry 06/23/16 06/23/16 06/23/16 03:00 03:35 04:00 Temperature 99.1 F Pulse Rate 55 55 60 Respiratory 17 15 18 Rate Blood Pressure 126/62 140/58 144/45 (mmHg) O2 Sat by Pulse 98 98 98 Oximetry 06/23/16 06/23/16 06/23/16 04:30 05:00 05:30 Temperature Pulse Rate 57 63 62 Respiratory 15 20 20 Rate Blood Pressure 129/65 135/63 157/58 (mmHg) O2 Sat by Pulse 97 97 Oximetry 06/23/16 06/23/16 06/23/16 05:45 06:00 06:30 Temperature Pulse Rate 56 57 64 Respiratory 17 14 16 Rate Blood Pressure 149/58 146/75 152/50 (mmHg) O2 Sat by Pulse 100 100 Oximetry 06/23/16 06/23/16 06/23/16 07:00 07:30 07:36 Temperature 98.9 F Pulse Rate 56 61 Respiratory 18 17 Rate Blood Pressure 135/58 142/59 (mmHg) O2 Sat by Pulse 100 100 Oximetry 06/23/16 06/23/16 06/23/16 08:00 08:30 09:00 Temperature Pulse Rate 57 66 58 Respiratory 14 16 16 Rate Blood Pressure 147/57 137/68 128/76 (mmHg) O2 Sat by Pulse 98 100 99 Oximetry Oxygen Devices in Use Now: Nasal Cannula Appearance: lying 20 deg, NAD Eyes: No Scleral Icterus, PERRLA Ears/Nose/Mouth/Throat: - - dry MM Neck: NL Appearance and Movements; NL JVP, Trachea Midline Respiratory: Symmetrical Chest Expansion and Respiratory Effort, Clear to Auscultation Cardiovascular: RRR Abdominal: NL Sounds; No Tenderness; No Distention, No Hepatosplenomegaly Lymphatic: No Cervical Adenopathy Neurological: - - drain in place, AOx0, follows simple commands (blink eyes, open mouth) 4/5 strength on left, 2/5 RUE, 4/5 b/l LE Result Diagrams: 06/23/16 05:55 06/23/16 05:55 Additional Lab and Data: Lab Results 06/22/16 Range/Units 13:40 WBC 8.6 (3.5-10.8) 10^3/ul RBC 3.73 L (4.0-5.4) 10^6/ul Hgb 9.8 L (14.0-18.0) g/dl Hct 31 L (42-52) % MCV 82 (80-94) fL MCH 26 L (27-31) pg MCHC 32 (31-36) g/dl RDW 24 H (10.5-15) % Plt Count 265 (150-450) 10^3/ul MPV 8 (7.4-10.4) um3 Neut % (Auto) 84.0 H (38-83) % Lymph % (Auto) 6.1 L (25-47) % [place] % (Auto) 8.7 (1-9) % Eos % (Auto) 0.4 (0-6) % Baso % (Auto) 0.8 (0-2) % Absolute Neuts (auto) 7.2 (1.5-7.7) 10^3/ul Absolute Lymphs (auto) 0.5 L (1.0-4.8) 10^3/ul Absolute Monos (auto) 0.7 (0-0.8) 10^3/ul Absolute Eos (auto) 0 (0-0.6) 10^3/ul Absolute Basos (auto) 0.1 (0-0.2) 10^3/ul Absolute Nucleated RBC 0 10^3/ul Nucleated RBC % 0 Microbiology and Other Data: Microbiology 06/22/16 21:19 Nasal Screen MRSA (PCR)([facility]MIE) - Final Nasal Mrsa Negative Assess/Plan/Problems-Billing Assessment: 76M h/o dementia p/w subdural hematoma s/p fall now post craniotomy/clot evacuation 06/22 - Patient Problems (1) Subdural hematoma Comment: s/p clot evacuation and drain 06/22 (2) Diabetes Comment: Reviewed med reconciliation sent from [facility]. Pt takes 54 units lantus daily. HbA1c 8.8% Will maintain lower dose 10U while NPO and cover FSG with lispro SS. Increase basal as diet advanced FSG q4h while NPO (3) Hypertension Comment: Labetalol PRN Hold parameters for HR <60 (4) DVT prophylaxis Comment: SCDs
[2016-06-23] MEDS ORDERED: Phenytoin IV(*) 50 MG/ML 2 ML VIAL (100 MG) ONE (10:49)
[2016-06-23] MEDS: Insulin GLARGINE(*) 1 UNITS UNIT SUBCUT SCH (21:31)
[2016-06-23] MEDS: Haloperidol TAB* 2 MG PO PRN (23:07)
[2016-06-24] MEDS: Insulin LISPRO* 1 UNITS UNIT SUBCUT SCH ×5 (01:24→20:55)
[2016-06-24] MEDS: Enalaprilat IV* 1.25 MG/ML 1 ML VIAL (1.25 MG) IV PRN (02:35)
--- NOTE | 2016-06-24 08:05 | PN ---
Progress Note - Progress Note SOAP: Subjective: [S/p left александр hole x2 for subacute SDH evacuation, POD #2. Speech is improved; answers questions with 1-2 word answers. States that he feels well. Denies headache, nausea, chest pain.] Objective: [ Vital Signs: Temp Pulse Resp BP Pulse Ox 100.2 F 51 14 148/51 99 06/24/16 07:36 06/24/16 06:00 06/24/16 06:00 06/24/16 06:00 06/24/16 06:00 General: Tired, falling asleep during exam. Oriented to person. No distress. Neuro: Speech is clear, 1-2 word answers. RUE strength remains 3/5, RLE strength 4/5. Incisions: Incisions to the left head intact with sade. Mild amount swelling around incisions. No infection. Drain removed today.] Assessment: [Stable and satisfactory post-op. Pre-operative deficits improving. Drain removed today without complication.] Plan: [1. Continue pain and nausea management. 2. Continue neuro checks. 3. No HOB restriction. 4. Swallow evaluation and encourage PO fluids and nutrition if safe. 5. CBC 6. Out of bed to chair as tolerated. 7. Hospitalist following. ]
[2016-06-24] MEDS: Omeprazole CAP* 20 MG PO SCH (10:18)
[2016-06-24] MEDS: Magnesium Oxide TAB* 400 MG PO SCH (10:18)
[2016-06-24] MEDS: Phenytoin CAP(*) 100 MG CAP.ER PO SCH ×3 (10:19→20:56)
[2016-06-24] MEDS: Ferrous Sulfate TAB* 325 MG PO SCH (10:19)
[2016-06-24] MEDS: Ascorbic Acid TAB* 500 MG PO SCH (10:19)
[2016-06-24 10:30] LABS: Hematocrit 27 % (42-52); Hemoglobin 8.7 g/dl (14.0-18.0); Mean Corpuscular HGB Conc 32 g/dl (31-36); Mean Corpuscular Hemoglobin 26 pg (27-31); Mean Corpuscular Volume 82 fL (80-94); Mean Platelet Volume 8 um3 (7.4-10.4); White Blood Count 9.8 10^3/ul (3.5-10.8)
[2016-06-24 10:31] LABS: Comments Flag Yes; Red Cell Distribution Width 24 % (10.5-15)
--- NOTE | 2016-06-24 10:54 | PN ---
Subjective Date of Service: 06/24/16 Interval History: Sitting up in chair eating breakfast Confused, has no complaints Drain is out today Objective Active Medications: Acetaminophen (Tylenol Tab*) 650 mg PO Q4H PRN PRN Reason: PAIN Ascorbic Acid (Vitamin C Tab*) 500 mg PO DAILY [facility] Last Admin: 06/24/16 10:19 Dose: 500 mg Enalaprilat (Vasotec Iv*) 1.25 mg IV Q6H PRN PRN Reason: SBP>160 Last Admin: 06/24/16 02:35 Dose: 1.25 mg Ferrous Sulfate (Ferrous Sulfate Tab*) 325 mg PO DAILY [facility] Last Admin: 06/24/16 10:19 Dose: 325 mg Haloperidol (Haldol Tab*) 2 mg PO TID PRN PRN Reason: AGITATION Last Admin: 06/23/16 23:07 Dose: 2 mg Insulin Glargine (Lantus(*)) 7 units SUBCUT BEDTIME [facility] Insulin Human Lispro (Humalog*) 0 units SUBCUT Q4H [facility] PRN Reason: Protocol Last Admin: 06/24/16 10:19 Dose: Not Given Labetalol HCl (Trandate Iv*) 20 mg IV PUSH Q4H PRN PRN Reason: BLOOD PRESSURE Magnesium Oxide (Magox 400 Tab*) 400 mg PO DAILY [facility] Last Admin: 06/24/16 10:18 Dose: 400 mg Morphine Sulfate (Morphine Inj (Syringe)*) 2 mg IV Q3H PRN PRN Reason: PAIN Last Admin: 06/23/16 15:50 Dose: 2 mg Omeprazole (Prilosec Cap*) 40 mg PO DAILY@0730 [facility] Last Admin: 06/24/16 10:18 Dose: 40 mg Ondansetron HCl (Zofran Inj*) 4 mg IV Q6H PRN PRN Reason: NAUSEA/VOMITING Last Admin: 06/23/16 11:06 Dose: 4 mg Phenytoin Sodium (Dilantin Cap(*)) 100 mg PO TID [facility] Last Admin: 06/24/16 10:19 Dose: 100 mg Vital Signs 06/23/16 06/23/16 06/23/16 11:00 11:13 11:51 Temperature 99.6 F Pulse Rate 64 65 Respiratory 19 17 Rate Blood Pressure 164/85 112/66 (mmHg) O2 Sat by Pulse 100 98 Oximetry 06/23/16 06/23/16 06/23/16 12:00 12:47 13:00 Temperature Pulse Rate 57 57 Respiratory 14 17 14 Rate Blood Pressure 125/53 122/58 (mmHg) O2 Sat by Pulse 97 97 Oximetry 06/23/16 06/23/16 06/23/16 13:56 14:00 15:00 Temperature Pulse Rate 57 58 Respiratory 18 14 18 Rate Blood Pressure 107/54 129/52 (mmHg) O2 Sat by Pulse 96 97 Oximetry 06/23/16 06/23/16 06/23/16 15:50 15:56 16:00 Temperature 98.4 F Pulse Rate 60 Respiratory 21 13 Rate Blood Pressure 143/46 (mmHg) O2 Sat by Pulse 97 Oximetry 06/23/16 06/23/16 06/23/16 17:00 18:00 19:00 Temperature Pulse Rate 60 60 55 Respiratory 20 16 15 Rate Blood Pressure 140/65 130/49 136/53 (mmHg) O2 Sat by Pulse 97 98 95 Oximetry 06/23/16 06/23/16 06/23/16 19:40 20:00 21:00 Temperature 99.9 F Pulse Rate 52 58 Respiratory 10 13 Rate Blood Pressure 124/55 144/49 (mmHg) O2 Sat by Pulse 97 97 Oximetry 06/23/16 06/23/16 06/23/16 22:00 22:59 23:00 Temperature Pulse Rate 57 62 Respiratory 14 17 16 Rate Blood Pressure 146/51 (mmHg) O2 Sat by Pulse 96 98 Oximetry 06/23/16 06/24/16 06/24/16 23:48 00:00 00:02 Temperature 101.0 F Pulse Rate 59 60 Respiratory 13 15 14 Rate Blood Pressure 154/60 (mmHg) O2 Sat by Pulse 94 96 96 Oximetry 06/24/16 06/24/16 06/24/16 00:08 01:00 01:26 Temperature Pulse Rate 60 60 Respiratory 15 16 16 Rate Blood Pressure 171/83 156/69 (mmHg) O2 Sat by Pulse 97 98 Oximetry 06/24/16 06/24/16 06/24/16 02:00 02:07 02:55 Temperature Pulse Rate 60 63 Respiratory 15 15 16 Rate Blood Pressure 171/62 167/64 (mmHg) O2 Sat by Pulse 97 98 Oximetry 06/24/16 06/24/16 06/24/16 03:00 03:39 03:40 Temperature 99.1 F Pulse Rate 62 Respiratory 18 10 Rate Blood Pressure 136/84 (mmHg) O2 Sat by Pulse 98 Oximetry 06/24/16 06/24/16 06/24/16 04:00 04:52 05:00 Temperature Pulse Rate 58 51 Respiratory 16 10 Rate Blood Pressure 142/59 149/55 (mmHg) O2 Sat by Pulse 96 99 100 Oximetry 06/24/16 06/24/16 06/24/16 05:48 06:00 07:00 Temperature Pulse Rate 51 64 Respiratory 16 14 21 Rate Blood Pressure 148/51 149/62 (mmHg) O2 Sat by Pulse 99 97 Oximetry 06/24/16 06/24/16 06/24/16 07:36 08:00 09:00 Temperature 100.2 F 100.2 F Pulse Rate Respiratory 15 Rate Blood Pressure 143/55 (mmHg) O2 Sat by Pulse Oximetry Oxygen Devices in Use Now: Nasal Cannula Appearance: sitting in chair, NAD Eyes: No Scleral Icterus, PERRLA Ears/Nose/Mouth/Throat: Mucous Membranes Moist Neck: NL Appearance and Movements; NL JVP, Trachea Midline Respiratory: Symmetrical Chest Expansion and Respiratory Effort, - - mild rales in bases Cardiovascular: NL Sounds; No Murmurs; No JVD, RRR Abdominal: NL Sounds; No Tenderness; No Distention, No Hepatosplenomegaly Skin: - - sade on scalp c/d/i, drain out today Neurological: - - AOx1 to name Result Diagrams: 06/24/16 10:10 06/23/16 05:55 Additional Lab and Data: Lab Results 06/22/16 Range/Units 13:40 WBC 8.6 (3.5-10.8) 10^3/ul RBC 3.73 L (4.0-5.4) 10^6/ul Hgb 9.8 L (14.0-18.0) g/dl Hct 31 L (42-52) % MCV 82 (80-94) fL MCH 26 L (27-31) pg MCHC 32 (31-36) g/dl RDW 24 H (10.5-15) % Plt Count 265 (150-450) 10^3/ul MPV 8 (7.4-10.4) um3 Neut % (Auto) 84.0 H (38-83) % Lymph % (Auto) 6.1 L (25-47) % [place] % (Auto) 8.7 (1-9) % Eos % (Auto) 0.4 (0-6) % Baso % (Auto) 0.8 (0-2) % Absolute Neuts (auto) 7.2 (1.5-7.7) 10^3/ul Absolute Lymphs (auto) 0.5 L (1.0-4.8) 10^3/ul Absolute Monos (auto) 0.7 (0-0.8) 10^3/ul Absolute Eos (auto) 0 (0-0.6) 10^3/ul Absolute Basos (auto) 0.1 (0-0.2) 10^3/ul Absolute Nucleated RBC 0 10^3/ul Nucleated RBC % 0 Microbiology and Other Data: Microbiology 06/22/16 21:19 Nasal Screen MRSA (PCR)(SAMMIE) - Final Nasal Mrsa Negative Assess/Plan/Problems-Billing Assessment: 76M h/o dementia p/w subdural hematoma s/p fall now post craniotomy/clot evacuation 06/22 - Patient Problems (1) Subdural hematoma Comment: s/p clot evacuation and drain 06/22 drain out 06/24 (2) Fever Comment: Suspect in setting of recent subdural check CXR to check for atalectasis vs consolidation check blood cultures for fever >101 (3) Diabetes Comment: Reviewed med reconciliation sent from [facility]. Pt takes 54 units lantus daily. HbA1c 8.8% Decrease lantus to 7U this evening FSG achs (4) Hypertension Comment: Labetalol PRN Hold parameters for HR <60 (5) DVT prophylaxis Comment: SCDs
--- NOTE | 2016-06-24 11:49 | RAD ---
Indication: Subacute subdural hematoma. Lethargic. Fever. Comparison: June 22, 2016 chest radiograph. Technique: Upright AP 1110 hours and 1120 hours Report: Clear lungs and pleural spaces. Median sternotomy wires. Cardiomegaly. Unremarkable central pulmonary vasculature and mediastinal contours. Gallbladder fossa level surgical clips. Negative for free air beneath the diaphragm. IMPRESSION: No evidence for pneumonia or other acute intrathoracic process.
[2016-06-24] MEDS ORDERED: Insulin GLARGINE(*) 1 UNITS UNIT SUBCUT SCH (21:00)
[2016-06-25] MEDS: Enalaprilat IV* 1.25 MG/ML 1 ML VIAL (1.25 MG) IV PRN ×2 (01:44→16:08)
[2016-06-25] MEDS: Haloperidol TAB* 2 MG PO PRN (03:11)
--- NOTE | 2016-06-25 07:41 | PN ---
Progress Note - Progress Note SOAP: Subjective: []POD # 3 Sleepy this am,received dose of haldol at 3am Apparently very restless during night No complaints this am Objective: []Awake,responds to requests Wound OK Mild weakness on right Assessment: []Overall stable Plan: [] Transfer to floor PT/OT/Rehab eval
[2016-06-25] MEDS: Ferrous Sulfate TAB* 325 MG PO SCH (09:03)
[2016-06-25] MEDS: Omeprazole CAP* 20 MG PO SCH (09:03)
[2016-06-25] MEDS: Insulin LISPRO* 1 UNITS UNIT SUBCUT SCH ×5 (09:03→20:52)
[2016-06-25] MEDS: Ascorbic Acid TAB* 500 MG PO SCH (09:04)
[2016-06-25] MEDS: Magnesium Oxide TAB* 400 MG PO SCH (09:04)
[2016-06-25] MEDS: Phenytoin CAP(*) 100 MG CAP.ER PO SCH ×3 (09:04→20:52)
[2016-06-25] MEDS ORDERED: Clindamycin 900 MG IVPREMIX(* 900 MG/50 ML SDV IV ONE (11:00)
--- NOTE | 2016-06-25 18:15 | CONSULT ---
Subjective Date of Service: 06/25/16 Interval History: Appetite increased Transferred out of unit Review of Systems - Measurements Intake and Output: Intake and Output Last 24 Hours 06/23/16 06/24/16 06/25/16 06/26/16 11:59 11:59 11:59 11:59 Intake Total 775 1950.9 840 540 Output Total 563 790 6613 Balance 442 1031.9 -560 540 Weight 76.6 kg 69.1 kg 67.6 kg Intake: IV Fluids 775 1867.9 20 LR 775 1777 NS 20 Phenytoin 90.9 IVPB 83 LR 83 Medicated IV 60 Vasotec 60 Oral 0 840 460 Output: Cranial Drain 58 14 Urine 554 305 2032 [place] 805 250 Other: Estimated Void Large Large Estimated Stool Amount Small # Voids 1 3 1 Objective Active Medications: Acetaminophen (Tylenol Tab*) 650 mg PO Q4H PRN PRN Reason: PAIN Ascorbic Acid (Vitamin C Tab*) 500 mg PO DAILY [facility] Last Admin: 06/25/16 09:04 Dose: 500 mg Enalaprilat (Vasotec Iv*) 1.25 mg IV Q6H PRN PRN Reason: SBP>160 Last Admin: 06/25/16 16:08 Dose: 1.25 mg Ferrous Sulfate (Ferrous Sulfate Tab*) 325 mg PO DAILY [facility] Last Admin: 06/25/16 09:03 Dose: 325 mg Haloperidol (Haldol Tab*) 2 mg PO TID PRN PRN Reason: AGITATION Last Admin: 06/25/16 03:11 Dose: 2 mg Insulin Glargine (Lantus(*)) 12 units SUBCUT BEDTIME [facility] Insulin Human Lispro (Humalog*) 0 units SUBCUT ACHS [facility] PRN Reason: Protocol Labetalol HCl (Trandate Iv*) 20 mg IV PUSH Q4H PRN PRN Reason: BLOOD PRESSURE Last Admin: 06/25/16 03:11 Dose: 20 mg Magnesium Oxide (Magox 400 Tab*) 400 mg PO DAILY [facility] Last Admin: 06/25/16 09:04 Dose: 400 mg Morphine Sulfate (Morphine Inj (Syringe)*) 2 mg IV Q3H PRN PRN Reason: PAIN Last Admin: 06/23/16 15:50 Dose: 2 mg Omeprazole (Prilosec Cap*) 40 mg PO DAILY@0730 [facility] Last Admin: 06/25/16 09:03 Dose: 40 mg Ondansetron HCl (Zofran Inj*) 4 mg IV Q6H PRN PRN Reason: NAUSEA/VOMITING Last Admin: 06/23/16 11:06 Dose: 4 mg Phenytoin Sodium (Dilantin Cap(*)) 100 mg PO TID [facility] Last Admin: 06/25/16 13:35 Dose: 100 mg Vital Signs 06/24/16 06/24/16 06/24/16 19:00 19:53 20:00 Temperature 99.8 F Pulse Rate 71 67 Respiratory 20 16 23 Rate Blood Pressure 134/79 147/57 (mmHg) O2 Sat by Pulse 94 95 Oximetry 06/24/16 06/24/16 06/24/16 20:59 21:00 21:51 Temperature Pulse Rate 69 Respiratory 21 21 18 Rate Blood Pressure 164/68 (mmHg) O2 Sat by Pulse 96 Oximetry 06/24/16 06/24/16 06/24/16 22:00 22:25 23:00 Temperature Pulse Rate 66 60 61 Respiratory 13 17 21 Rate Blood Pressure 133/85 127/53 (mmHg) O2 Sat by Pulse 95 96 95 Oximetry 06/24/16 06/24/16 06/25/16 23:13 23:40 00:00 Temperature 99.3 F Pulse Rate 62 61 Respiratory 17 18 Rate Blood Pressure (mmHg) O2 Sat by Pulse 97 97 Oximetry 06/25/16 06/25/16 06/25/16 00:02 01:00 01:42 Temperature Pulse Rate 69 57 55 Respiratory 18 19 19 Rate Blood Pressure 151/63 168/69 173/70 (mmHg) O2 Sat by Pulse 95 96 99 Oximetry 06/25/16 06/25/16 06/25/16 01:45 02:00 02:51 Temperature Pulse Rate 62 64 Respiratory 22 20 22 Rate Blood Pressure 175/74 (mmHg) O2 Sat by Pulse 99 99 Oximetry 06/25/16 06/25/16 06/25/16 03:00 03:03 04:00 Temperature 98.2 F Pulse Rate 65 93 53 Respiratory 19 18 20 Rate Blood Pressure 184/71 144/63 (mmHg) O2 Sat by Pulse 98 96 98 Oximetry 06/25/16 06/25/16 06/25/16 05:00 05:57 06:00 Temperature Pulse Rate 54 Respiratory 20 20 17 Rate Blood Pressure 157/59 159/64 (mmHg) O2 Sat by Pulse 97 Oximetry 06/25/16 06/25/16 06/25/16 07:00 07:56 08:00 Temperature 99.5 F Pulse Rate 61 69 Respiratory 18 19 Rate Blood Pressure 168/59 (mmHg) O2 Sat by Pulse 99 98 Oximetry 06/25/16 06/25/16 06/25/16 08:03 09:00 10:00 Temperature Pulse Rate 65 64 70 Respiratory 16 19 21 Rate Blood Pressure 160/87 142/81 (mmHg) O2 Sat by Pulse 99 99 98 Oximetry 06/25/16 06/25/16 06/25/16 10:55 10:58 13:02 Temperature 98.4 F 98.4 F Pulse Rate 57 57 52 Respiratory 12 12 Rate Blood Pressure 168/62 168/62 153/51 (mmHg) O2 Sat by Pulse 100 100 100 Oximetry 06/25/16 06/25/16 15:49 15:56 Temperature 100.1 F 97.7 F Pulse Rate 64 61 Respiratory 22 Rate Blood Pressure 164/67 166/67 (mmHg) O2 Sat by Pulse 100 Oximetry Oxygen Devices in Use Now: None Appearance: NAD Eyes: No Scleral Icterus Ears/Nose/Mouth/Throat: NL Teeth, Lips, Gums Neck: NL Appearance and Movements; NL JVP Respiratory: Symmetrical Chest Expansion and Respiratory Effort, Clear to Auscultation Cardiovascular: RRR Abdominal: NL Sounds; No Tenderness; No Distention Lymphatic: No Cervical Adenopathy Skin: - - sade c/d/i Neurological: - - AOx1 to name, moving all extremities Result Diagrams: 06/24/16 10:10 06/23/16 05:55 Additional Lab and Data: Lab Results 06/22/16 Range/Units 13:40 WBC 8.6 (3.5-10.8) 10^3/ul RBC 3.73 L (4.0-5.4) 10^6/ul Hgb 9.8 L (14.0-18.0) g/dl Hct 31 L (42-52) % MCV 82 (80-94) fL MCH 26 L (27-31) pg MCHC 32 (31-36) g/dl RDW 24 H (10.5-15) % Plt Count 265 (150-450) 10^3/ul MPV 8 (7.4-10.4) um3 Neut % (Auto) 84.0 H (38-83) % Lymph % (Auto) 6.1 L (25-47) % [place] % (Auto) 8.7 (1-9) % Eos % (Auto) 0.4 (0-6) % Baso % (Auto) 0.8 (0-2) % Absolute Neuts (auto) 7.2 (1.5-7.7) 10^3/ul Absolute Lymphs (auto) 0.5 L (1.0-4.8) 10^3/ul Absolute Monos (auto) 0.7 (0-0.8) 10^3/ul Absolute Eos (auto) 0 (0-0.6) 10^3/ul Absolute Basos (auto) 0.1 (0-0.2) 10^3/ul Absolute Nucleated RBC 0 10^3/ul Nucleated RBC % 0 Microbiology and Other Data: Microbiology 06/22/16 21:19 Nasal Screen MRSA (PCR)(SAMMIE) - Final Nasal Mrsa Negative Assessment/Plan - Billing Assessment: 76M h/o dementia p/w subdural hematoma s/p fall now post craniotomy/clot evacuation 06/22 Subdural - drain out 06/24, care per NS DM2 - -lantus increased to 12 U -lispro increased from low to high dose SS HTN - not previously on anthypertensives -IV enalaprit -if remains elevated tomorrow consider PO alternative Fever - suspect in setting of recent subdural and intervention Will continue to follow
[2016-06-25] MEDS ORDERED: Insulin GLARGINE(*) 1 UNITS UNIT SUBCUT SCH (21:00)
--- NOTE | 2016-06-26 08:07 | PN ---
Progress Note - Progress Note SOAP: Subjective: [S/p left александр hole x2 for subacute SDH evacuation, POD#4. Tired this morning but able to follow commands and answer simple questions. Denies headache, nausea and chest pain. Working with PT and OT.] Objective: [ Vital Signs: Temp Pulse Resp BP Pulse Ox 98.2 F 60 16 153/88 100 06/26/16 07:26 06/26/16 07:26 06/26/16 07:26 06/26/16 07:26 06/26/16 07:26 General: Falls asleep during exam but awakes to questions. Oriented to self and [place]. Neuro: Speech is clear and answers most questions appropriately. RUE and RLE weakness persists although improved from pre-op. Incision: Incisions intact with sade. No sign of infection. No swelling or ecchymosis.] Assessment: [Stable post-op. ] Plan: [1. Possible discharge today to return to [facility] for rehab. 2. Continue to monitor neuro. 3. PT and OT following.]
[2016-06-26] MEDS: Insulin LISPRO* 1 UNITS UNIT SUBCUT SCH ×2 (08:14→12:35)
[2016-06-26] MEDS: Omeprazole CAP* 20 MG PO SCH (09:42)
[2016-06-26] MEDS: Ascorbic Acid TAB* 500 MG PO SCH (09:43)
[2016-06-26] MEDS: Ferrous Sulfate TAB* 325 MG PO SCH (09:43)
[2016-06-26] MEDS: Phenytoin CAP(*) 100 MG CAP.ER PO SCH (09:43)
[2016-06-26] MEDS: Magnesium Oxide TAB* 400 MG PO SCH (09:43)
--- NOTE | 2016-06-26 11:36 | DS ---
06/26/16 Discharge Summary: Date of admission: 06/22/16 Date of discharge: 06/26/16 Discharge diagnosis: 1. Subacute subdural hematoma 2. Diabetes 3. HTN 4. CAD 5. Dementia Special procedures: 1. Left александр hole x2 for evacuation of subacute SDH Hospital course: This 76 year old male presented to the [facility] on 06/22/16 with right sided upper and lower extremity weakness with history of a fall 4 days prior at his place of residence, [facility]. While in the ED, a CT brain was obtained, showing a large left sided subacute SDH. Physical exam revealed speech deficits in addition to significant right upper and lower extremity weakness. It was determined that surgery was necessary to evacuate the hematoma. He was taken to surgery, where under general anesthesia, two left sided александр holes were placed, hematoma was evacuated and a drain was introduced to the subdural space. He was admitted to the ICU where he was monitored neurologically. On the second post- operative day, the subdural drain was removed. His speech and weakness were significantly improved. On the third post-operative day, he was transferred to the short stay surgical unit for continued observation and evaluation by PT anf OT. On the fourth post-operative day, he is feeling well. He denies pain and headache. He is up out of bed to the chair with assistance. He is eating and drinking well. He is discharged to his previous place of residence at [facility] for rehab. Follow up: 1. Laura will be removed at the nursing facility on 07/01. 2. He will be seen in office in approximately 3 weeks for follow up. New discharge medications: 1. Dilantin 300mg PO HS
[2016-06-26] MEDS ORDERED: Magnesium Hydroxide LIQ* 30 ML UDC PO ONE (12:09)
[2016-06-26 12:49] VITALS: BP 158/77
--- NOTE | 2016-06-26 14:36 | CONSULT ---
Subjective Date of Service: 06/26/16 Interval History: No BM x 2 days Review of Systems - Measurements Intake and Output: Intake and Output Last 24 Hours 06/24/16 06/25/16 06/26/16 06/27/16 11:59 11:59 11:59 11:59 Intake Total 1950.9 840 750 Output Total 919 1400 950 400 Balance 1031.9 -560 -200 -400 Weight 69.1 kg 67.6 kg Intake: IV Fluids 1867.9 20 LR 1777 NS 20 Phenytoin 90.9 IVPB 83 LR 83 Medicated IV 60 Vasotec 60 Oral 840 670 Output: Cranial Drain 14 Urine 100 1150 550 400 [place] 805 250 400 Other: Estimated Void Medium # Bowel Movements 0 1 Estimated Stool Amount Small # Voids 3 1 Objective Active Medications: Acetaminophen (Tylenol Tab*) 650 mg PO Q4H PRN PRN Reason: PAIN Ascorbic Acid (Vitamin C Tab*) 500 mg PO DAILY [facility] Last Admin: 06/26/16 09:43 Dose: 500 mg Enalaprilat (Vasotec Iv*) 1.25 mg IV Q6H PRN PRN Reason: SBP>160 Last Admin: 06/25/16 16:08 Dose: 1.25 mg Ferrous Sulfate (Ferrous Sulfate Tab*) 325 mg PO DAILY [facility] Last Admin: 06/26/16 09:43 Dose: 325 mg Haloperidol (Haldol Tab*) 2 mg PO TID PRN PRN Reason: AGITATION Last Admin: 06/25/16 03:11 Dose: 2 mg Insulin Glargine (Lantus(*)) 12 units SUBCUT BEDTIME [facility] Last Admin: 06/25/16 20:52 Dose: 12 units Insulin Human Lispro (Humalog*) 0 units SUBCUT ACHS [facility] PRN Reason: Protocol Last Admin: 06/26/16 12:35 Dose: 6 units Labetalol HCl (Trandate Iv*) 20 mg IV PUSH Q4H PRN PRN Reason: BLOOD PRESSURE Last Admin: 06/25/16 03:11 Dose: 20 mg Magnesium Oxide (Magox 400 Tab*) 400 mg PO DAILY [facility] Last Admin: 06/26/16 09:43 Dose: 400 mg Morphine Sulfate (Morphine Inj (Syringe)*) 2 mg IV Q3H PRN PRN Reason: PAIN Last Admin: 06/23/16 15:50 Dose: 2 mg Omeprazole (Prilosec Cap*) 40 mg PO DAILY@0730 [facility] Last Admin: 06/26/16 09:42 Dose: 40 mg Ondansetron HCl (Zofran Inj*) 4 mg IV Q6H PRN PRN Reason: NAUSEA/VOMITING Last Admin: 06/23/16 11:06 Dose: 4 mg Phenytoin Sodium (Dilantin Cap(*)) 100 mg PO TID [facility] Last Admin: 06/26/16 09:43 Dose: 100 mg Vital Signs 06/25/16 06/25/16 06/25/16 15:49 15:56 20:08 Temperature 100.1 F 97.7 F 98.6 F Pulse Rate 64 61 76 Respiratory 22 18 Rate Blood Pressure 164/67 166/67 180/81 (mmHg) O2 Sat by Pulse 100 99 Oximetry 06/25/16 06/25/16 06/26/16 20:35 23:34 03:36 Temperature 99.3 F Pulse Rate 73 70 Respiratory 16 16 20 Rate Blood Pressure 162/68 168/80 (mmHg) O2 Sat by Pulse 98 99 Oximetry 06/26/16 06/26/16 06/26/16 07:26 07:30 12:42 Temperature 98.2 F 98.3 F Pulse Rate 60 79 Respiratory 16 16 16 Rate Blood Pressure 153/88 158/77 (mmHg) O2 Sat by Pulse 100 99 Oximetry Oxygen Devices in Use Now: None Appearance: NAD Eyes: No Scleral Icterus Ears/Nose/Mouth/Throat: Clear Oropharnyx Respiratory: Symmetrical Chest Expansion and Respiratory Effort Cardiovascular: RRR Neurological: - - AOx0 Result Diagrams: 06/24/16 10:10 06/23/16 05:55 Additional Lab and Data: Lab Results 06/22/16 Range/Units 13:40 WBC 8.6 (3.5-10.8) 10^3/ul RBC 3.73 L (4.0-5.4) 10^6/ul Hgb 9.8 L (14.0-18.0) g/dl Hct 31 L (42-52) % MCV 82 (80-94) fL MCH 26 L (27-31) pg MCHC 32 (31-36) g/dl RDW 24 H (10.5-15) % Plt Count 265 (150-450) 10^3/ul MPV 8 (7.4-10.4) um3 Neut % (Auto) 84.0 H (38-83) % Lymph % (Auto) 6.1 L (25-47) % [place] % (Auto) 8.7 (1-9) % Eos % (Auto) 0.4 (0-6) % Baso % (Auto) 0.8 (0-2) % Absolute Neuts (auto) 7.2 (1.5-7.7) 10^3/ul Absolute Lymphs (auto) 0.5 L (1.0-4.8) 10^3/ul Absolute Monos (auto) 0.7 (0-0.8) 10^3/ul Absolute Eos (auto) 0 (0-0.6) 10^3/ul Absolute Basos (auto) 0.1 (0-0.2) 10^3/ul Absolute Nucleated RBC 0 10^3/ul Nucleated RBC % 0 Microbiology and Other Data: Microbiology 06/22/16 21:19 Nasal Screen MRSA (PCR)([facility]MIE) - Final Nasal Mrsa Negative Assessment/Plan - Billing Assessment: 76M h/o dementia p/w subdural hematoma s/p fall now post craniotomy/clot evacuation 06/22 Subdural - drain out 06/24, care per NS DM2 - -discharge on lantus 12 U and lispro 4 U TID with meals HTN - not previously on anthypertensives. has required IV for breakthrough -d/c on norvasc 5 mg Fever - suspect in setting of recent subdural and intervention Constipation - soap dasia enema today with relief
--- NOTE | 2016-07-02 01:45 | OP ---
DATE OF OPERATION: 06/22/16 - ROOM #336 DATE OF : 38 SURGEON: Valente Blue MD COMPUTER AIDED DESIGN DESIGNER: ANTOINE Grey ANESTHESIOLOGIST: Blayne Melvin MD ANESTHESIA: General. PRE-OP DIAGNOSIS: Left subacute subdural hematoma. POST-OP DIAGNOSIS: Left subacute subdural hematoma. OPERATIVE PROCEDURE: Left frontal and parietal александр holes for drainage of subdural hematoma. DESCRIPTION OF PROCEDURE: The patient was placed on the operating table in the supine position and after satisfactory general anesthesia was obtained, the left side of the head was clipped, prepped, and draped in sterile manner for placement of left frontal and parietal александр holes. Preoperative CT scan had shown a chronic collection anteriorly over the frontal area with a more subacute -appearing collection posteriorly and superiorly. The initial александр hole was placed in the posterior frontal region on the left side mcc between the vertex and external auditory canal. A vertical incision was infiltrated with 1 % Xylocaine after which a single александр hole was placed with a power drill. The dura was opened and flow of rust-colored fluid was noted. The subdural space was irrigated after which a second александр hole was outlined in the mid parietal region 4 cm to the left of midline. This incision was opened down the level of periosteum and a single александр hole placed. Upon opening the dura in this posterior location, there was noted to be brisk release of bloody subdural fluid under significant pressure. Upon irrigating this александр hole, there was noted to be a communication with the anterior александр hole. The posterior александр hole was then thoroughly irrigated after which it was closed with Gelfoam over the александр hole defect and Vicryl for the subcutaneous tissues. Skin sade were applied. A ventricular catheter was then placed into the more frontal александр hole and tunneled posteriorly to act as a postoperative subdural drain. This was irrigated as well. Gelfoam was placed over this александр hole defect and the galea reapproximated with 2-0 Vicryl and skin closed with skin clips. The estimated blood loss was than 50 cc. The final sponge, padding, and needle counts were correct. The patient was taken to the recovery room extubated and in stable condition. [id number]/[facility] #: [id number] [facility]
== END 2016-06-26 14:30 | DRG 26 ==
LOC: ED 13:18 → OR 16:09 → ICU 19:42 → SSU 06-25 10:54
PROVIDERS: ADMIT Neurological Surgery; ATTEND Neurological Surgery
PROC: 009430Z Drainage of Intracranial Subdural Space with Drainage Device, Percutaneous Approach (ICD-10-PCS; principal; 2016-06-22 16:00)
DX: S06.5X0A Traumatic subdural hemorrhage without loss of consciousness, initial encounter (principal); N17.9 Acute kidney failure, unspecified; I25.810 Atherosclerosis of coronary artery bypass graft(s) without angina pectoris; E11.65 Type 2 diabetes mellitus with hyperglycemia; I11.9 Hypertensive heart disease without heart failure; F03.90 Unspecified dementia, unspecified severity, without behavioral disturbance, psychotic disturbance, mood disturbance, and anxiety; W18.30XA Fall on same level, unspecified, initial encounter; Y92.129 Unspecified place in nursing home as the place of occurrence of the external cause; K21.9 Gastro-esophageal reflux disease without esophagitis; E78.5 Hyperlipidemia, unspecified; K59.00 Constipation, unspecified; Z88.0 Allergy status to penicillin; Z79.82 Long term (current) use of aspirin; Z79.1 Long term (current) use of non-steroidal anti-inflammatories (NSAID); Z79.4 Long term (current) use of insulin; Z79.899 Other long term (current) drug therapy; Z66 Do not resuscitate; Z95.1 Presence of aortocoronary bypass graft
CPT/HCPCS: 36415; 70450; 71010; 80048; 80053; 83036; 83605; 84484; 85025; 85610; 85730; 87040; 87641; 93005; A9270-GY; J0330; J1100; J1165; J2270; J2405; J2704; J3010

== ENCOUNTER 2016-06-29 10:10 | Emergency (ER) | payer MEDICARE, BC ==
[2016-06-29] MEDS ORDERED: NS 0.9% 1000 ML* 2,000 ML IV ONE (10:22)
[2016-06-29] MEDS ORDERED: Insulin REGULAR(*) 1 UNITS UNIT IV PUSH ONE (10:29)
[2016-06-29 10:44] VITALS: BP 97/84
[2016-06-29] MEDS ORDERED: Insulin REGULAR(*) 100 UNITS in NS 0.9% 100 ML* 100 ML IV SCH (11:00)
[2016-06-29 11:11] LABS: TSH (Thyroid Stimulating Horm) 2.57 mcIU/mL (0.34-5.60)
--- NOTE | 2016-06-29 11:51 | ED ---
Clive Ivory Matthew, scribed for Félix Hernandez MD on 06/29/16 at 1049 . Altered Mental Status - HPI Summary HPI Summary: A 76 y/o male presents to the ED from [facility] since 09:30. At that time the staff measured his BP to be over 400. He was given Lantus 10 units and Novolog 14 units. The patient was Dx a week ago with a subdural hematoma after sustaining a fall. He was discharged to [facility] a week ago. During transport he had an increased respiratory rate and they were unable to obtain a blood pressure. The patient is a LEVEL 5 CAVEAT and unresponsive. A complete HPI is unable to be obatined. - History Of Current Complaint Stated Complaint: UNRESPONSIVE Hx Obtained From: EMS Hx From Patient Unobtainable Due To: Altered Mental Status Onset/Duration: Still Present Timing: Constant Severity Currently: Severe Character: Responsiveness - Unresponsive Aggravating Factor(s): Unknown Alleviating Factor(s): Unknown - Allergies/Home Medications Allergies/Adverse Reactions: Allergies Allergy/AdvReac Type Severity Reaction Status Date / Time Penicillins Allergy Unknown Verified 04/21/15 01:21 Reaction Details PMH/Surg Hx/FS Hx/Imm Hx Endocrine/Hematology History: Reports: Hx Diabetes Cardiovascular History: Reports: Hx Coronary Artery Disease GI History: Reports: Hx Gastroesophageal Reflux Disease History: Reports: Other Problems/Disorders - prostate cancer with a prostatectomy Neurological History: Reports: Hx Dementia - Cancer History Cancer Type, Location and Year: prostate w/prostatectomy Infectious Disease History: Denies: Hx Clostridium Difficile, Hx Hepatitis, Hx Human Immunodeficiency Virus (HIV), Hx of Known/Suspected MRSA, Hx Shingles, Hx Tuberculosis, History Other Infectious Disease, Traveled Outside the in Last 30 Days - Family History Known Family History: Positive: Unknown - Not obtained, since patient is a poor historian and hx of dementia, Other - reviewed and non contributory - Social History Alcohol Use: None Substance Use Type: Reports: None Smoking Status (MU): Never Smoked Tobacco Have You Smoked in the Last Year: No Review of Systems Positive: Shortness Of Breath Neurological: Other - Unresponsive All Other Systems Reviewed And Are Negative: No - Comments Additional Review of Systems Comments: A complete HPI is unable to be obtained, because the patient is a LEVEL 5 CAVEAT - Unresponsive Physical Exam Triage Information Reviewed: Yes Vital Signs On Initial Exam: Temp Pulse Resp BP Pulse Ox 97.5 F 93 30 97/84 98 06/29/16 10:27 06/29/16 10:27 06/29/16 10:27 06/29/16 10:27 06/29/16 10:27 Vital Signs Reviewed: Yes Completion Of Physical Exam Limited Due To: Level 5 Appearance: Positive: Ill-Appearing Skin: Positive: Pale Head/Face: Positive: Normal Head/Face Inspection Eyes: Positive: Other: - Pin Point pupils ENT: Positive: Normal ENT inspection Neck: Positive: Supple Respiratory/Lung Sounds: Positive: Rhonchi - Bilaterally, Other - Agonal breathing Cardiovascular: Positive: Tachycardia Neurological: Positive: Other - Unresponsive Diagnostics - Vital Signs Vital Signs Temp Pulse Resp BP Pulse Ox 06/29/16 10:27 97.5 F 93 30 97/84 98 - Laboratory Lab Results: Lab Results 06/29/16 Range/Units 10:23 Sodium Pending Potassium Pending Chloride Pending Carbon Dioxide Pending Anion Gap Pending BUN Pending Creatinine Pending Est GFR ( Amer) Pending Est GFR (Non-Af Amer) Pending BUN/Creatinine Ratio Pending Glucose Pending Calcium Pending Magnesium Pending Total Bilirubin Pending AST Pending ALT Pending Alkaline Phosphatase Pending Total Creatine Kinase Pending CK-MB (CK-2) Pending Troponin I Pending C-Reactive Protein Pending Total Protein Pending Albumin Pending Globulin Pending Albumin/Globulin Ratio Pending Lipase Pending TSH 2.57 (0.34-5.60) mcIU/mL Result Diagrams: 06/29/16 10:23 Lab Statement: Any lab studies that have been ordered have been reviewed, and results considered in the medical decision making process. - EKG 10:17 Cardiac Rate: NL - 97 bpm EKG Rhythm: Sinus Rhythm EKG Interpretation: LBBB; ST elevation in the inferior leads; reciprocal ST depression in V2 EKG Comparison: Other - New From 06/22/16 Altered Mental Statu Course/Dx - Course Assessment/Plan: PATIENT UNRESPONSIVE. WORK UP AND TREATMENT INITIATED. PATIENT IS A DNR. CARDIOPULMONARY ARREST PRONOUNCED AT 10:40AM. DISCUSSED WITH DR AGUEDA WHALEN. [place] [facility] [place] - Diagnoses Discharge Diagnoses: - Provider Notifications Discussed Care Of Patient With: Dr. Flores at 11:36 -- Notified of patient's history Discharge - Discharge Plan Condition: Disposition: Referrals: Loki Muñoz MD [Primary Care Provider] - The documentation as recorded by the Clive woodard Matthew accurately reflects the service I personally performed and the decisions made by me, Félix Hernandez MD.
[2016-06-29 12:21] LABS: Albumin 2.8 g/dL (3.2-5.2); BUN/Creatinine Ratio 20.1 (8-20); C Reactive Protein 264.53 mg/L (< 5.00); EGFR African American 46.1 (>60); EGFR Non-African American 35.8 (>60); Globulin 3.9 g/dL (2-4); Magnesium 2.3 mg/dL (1.9-2.7); Potassium 5.7 mmol/L (3.5-5.0); Total Bilirubin 0.4 mg/dL (0.2-1.0); Total Protein 6.7 g/dL (6.4-8.9)
[2016-06-29 12:38] LABS: Troponin I 6.26 ng/mL (<0.04)
== END 2016-06-29 10:20 | disposition expired ==
LOC: ED 10:10
DX: R41.82 Altered mental status, unspecified; J02.9 Acute pharyngitis, unspecified
CPT/HCPCS: 36415; 80053; 82550; 82553; 83690; 83735; 84443; 84484; 86140; 93005; 99284